=== PATIENT | female | born 1960 | race Hispanic/Latino ===

== ENCOUNTER 2017-07-12 20:22 | Emergency (ER) | payer OTHER ==
[~2017-07-12] VITALS: Ht 144.8 cm; Wt 95.2 kg
[~2017-07-12 20:22] MED LIST: ASPIRIN EC81 MG PO; DAILY VITAMIN1 EAC2 PO; GABAPENTIN300 MG PO; LOSARTAN POTASS25 MG PO; LOVASTATIN20 MG PO; MELOXICAM15 MG PO; METFORMIN HCL500 MG PO; NITROGLYCERIN0.4 MG SL; NORCO 7.5-3251 EACH PO; NORVASC5 MG PO; OMEPRAZOLE20 MG PO; PREVACID15 MG PO; ULTRAM50 MG PO; VITAMIN C500 M4 PO; VITAMIN D-32000 UNIT PO; VITAMIN D2000 UNI1 PO; VITAMIN E200 UNI3 PO
[2017-07-12] MEDS ORDERED: CEPHALEXIN500 MG PO (21:08)
[2017-07-12] MEDS ORDERED: NORCO 5-325 TA1 EACH PO (21:08)
== END 2017-07-12 21:32 | disposition home or self-care (01) ==
LOC: ED 20:22
DX: K08.89 Other specified disorders of teeth and supporting structures (principal); E11.40 Type 2 diabetes mellitus with diabetic neuropathy, unspecified; I10 Essential (primary) hypertension; Z88.0 Allergy status to penicillin; Z88.8 Allergy status to other drugs, medicaments and biological substances; Z79.84 Long term (current) use of oral hypoglycemic drugs; Z79.899 Other long term (current) drug therapy
CPT/HCPCS: 99283